=== PATIENT | male | born 1960 | race Caucasian/White ===

== ENCOUNTER 2016-11-29 09:01 | Outpatient (CLI) | payer OTHER ==
--- NOTE | 2016-11-29 15:17 | DIAGNOSTIC IMAGING REPORT ---
PROCEDURE: CT THORAX ABD PELVIS W/CONT INDICATION: METASTATIC PROSTATE CANCER, initial encounter TECHNIQUE: 150 ml of Isovue 300 injected intravenously and axial images were obtained of the entire thorax, abdomen, and pelvis with sagittal and coronal reformations. COMPARISON: Bone scan 11/29/2016 FINDINGS: THORAX: Normal lung parenchyma. No effusion. 5 mm right pericardial lymph node. Normal thoracic aorta. Coronary atherosclerosis. Normal heart size. Small hiatal hernia with thickening of the distal esophagus which may represent esophagitis. Extensive sclerotic metastases of the clavicles, humeral heads, bilateral ribs and spine. ABDOMEN: Small calcified gallstone. Liver, pancreas, spleen (splenule), adrenal glands and the kidneys are normal. Mild atherosclerosis of the aorta. No retroperitoneal adenopathy. Nonspecific bowel gas pattern. Extensive sclerotic metastases of the lumbar spine. PELVIS: Normal appendix. Occasional sigmoid diverticula. Nonenlarged prostate with central dystrophic calcification. Normal bladder. There is no adenopathy or free fluid. Extensive bone metastasis throughout the pelvic bones. IMPRESSION: 1. Extensive sclerotic osseous metastases throughout the axial and appendicular skeleton 2. Small hiatal hernia with thickening of the distal esophagus suggestive of reflux esophagitis 3. Cholelithiasis All CT scans at this facility use dose modulation, iterative reconstruction, and/or weight-based dosing when appropriate to reduce radiation dose to as low as reasonably achievable.
--- NOTE | 2016-11-29 15:29 | DIAGNOSTIC IMAGING REPORT ---
PROCEDURE: NM BONE/JOINT WHOLE BODY INDICATION: METASTATIC PROSTATE CANCER TECHNIQUE: 26 mCi of technetium-99m MDP. Blood flow, blood pool, and delayed static images. COMPARISON: CT abdomen/pelvis 11/29/2016 FINDINGS: Multiple areas of abnormally increased uptake in the skull, shoulders, bilateral humeri, bilateral femurs and bilateral tibias. Mild increased uptake of the mandible on the right may represent periodontal disease. Increased uptake of the right tarsal joints suggestive of degenerative changes. There is nonvisualization of the kidneys consistent with a super scan. IMPRESSION: 1. "Super scan "with multiple areas of abnormal uptake corresponding to the sclerotic lesions on today's CT scan, consistent with metastatic disease 2. Right mandibular uptake suggests periodontal disease 3. Right tarsal joints degenerative changes.
== END 2016-11-29 23:00 ==
LOC: NM SRH 09:01
DX: C61 Malignant neoplasm of prostate (principal); C79.51 Secondary malignant neoplasm of bone

== ENCOUNTER 2017-02-07 08:28 | Outpatient (CLI) | payer OTHER ==
--- NOTE | 2017-02-07 12:37 | DIAGNOSTIC IMAGING REPORT ---
PROCEDURE: MR THORACIC SPINE W/WO CONT INDICATION: CARCINOMATOSIS TECHNIQUE: Sagittal T1, T2, proton density; axial T2; and post 15 ml of ProHance sagittal and axial T1 fat sat sequences were obtained through the thoracic spine. COMPARISON: Bone scan 11/29/2016. FINDINGS: Abnormal T1 signal throughout the thoracic and partially visualized cervical spine with diffuse heterogeneous enhancement consistent with carcinomatosis. No evidence of pathological acute fracture. Mild degenerative changes. Mild central T4-5 and T8-9 central disc protrusions without spinal stenosis. Large T9-10 central disc herniation with mild spinal stenosis and flattening of the cord anteriorly. No foraminal stenosis. Paraspinal soft tissues are normal. Normal process or without evidence of an enhancing mass. IMPRESSION: 1. Diffuse carcinomatosis of the entire thoracic and partially visualized cervical spine 2. Mild T4-5 and T8-9 central disc protrusions 3. Large T9-10 central disc herniation with mild spinal stenosis and flattening of the cord anteriorly
--- NOTE | 2017-02-07 12:45 | DIAGNOSTIC IMAGING REPORT ---
PROCEDURE: MR LUMBAR SPINE W/WO CONTRAST INDICATION: CARCINOMATOSIS TECHNIQUE: Sagittal T1, STIR and T2; axial T2 sequences were obtained. Following 15 mL of intravenous gadolinium (ProHance), FAT-SAT T1 sagittal and axial images were obtained. COMPARISON: Bone scan 11/29/2016. FINDINGS: Abnormally decreased T1 signal of the entire lumbar spine and visualized site. with scattered areas of increased signal on the STIR sequence and heterogeneous enhancement consistent with carcinomatosis. L1-2: Mild facet arthropathy. L2-3: Mild facet arthropathy. L3-4: Mild broad-based disc bulge with moderate facet arthropathy. There is mild bilateral of foraminal stenosis. No spinal stenosis. L4-5: Moderate to large broad-based disc bulge with severe facet arthropathy and thickening of the ligament flava resulting in moderate bilateral foraminal and severe spinal stenosis. L5-S1: Normal appearance. IMPRESSION: 1. Markedly abnormal bone marrow of the lumbar spine visualize second consistent with carcinomatosis 2. Mild L3-4 disc bulge with mild bilateral foraminal stenosis 3. Moderate to large L4-5 disc bulge resulting in moderate bilateral foraminal and severe spinal stenosis
== END 2017-02-07 23:00 ==
LOC: MRI SRH 08:28
DX: C80.0 Disseminated malignant neoplasm, unspecified (principal); M51.24 Other intervertebral disc displacement, thoracic region

== ENCOUNTER 2017-02-10 14:03 | Outpatient (CLI) | payer OTHER ==
--- NOTE | 2017-02-10 16:55 | DIAGNOSTIC IMAGING REPORT ---
PROCEDURE: MR CERVICAL SPINE W/WO CONT INDICATION: CARCINOMATOSIS TECHNIQUE: Sagittal T1, STIR, T2; oblique T2; axial gradient echo and T2 sequences. Following 20 ml of ProHance IV, sagittal and axial T1 fat sat sequences were obtained. COMPARISON: Bone scan 11/29/2016. FINDINGS: Abnormal decreased T1 signal, patchy increased signal on the STIR sequence and inhomogeneous enhancement of the entire cervical spine consistent with carcinomatosis. Normal alignment without fracture. Mild to moderate degenerative changes. Craniocervical junction and cord are normal. No abnormal enhancement of the cord. C2-3: Moderate left posterior/foraminal disc protrusion/spur complex with facet arthropathy resulting in moderate left foraminal stenosis. No spinal stenosis. C3-4: Normal. C4-5: Normal. C5-6: Mild broad-based disc bulge/spur complex and facet arthropathy resulting in mild left foraminal stenosis. No spinal stenosis. C6-7: Mild disc bulge and facet arthropathy resulting in mild right foraminal stenosis. No spinal stenosis. C7-T1: Normal. IMPRESSION: 1. Normal bone marrow signal throughout the cervical spine consistent with carcinomatosis 2. Mild to moderate degenerative changes 3. Moderate left C2-3, mild left C5-6 and mild right C6-7 foraminal stenosis.
== END 2017-02-10 23:00 ==
LOC: MRI SRH 14:03
DX: C80.0 Disseminated malignant neoplasm, unspecified (principal); M50.31 Other cervical disc degeneration, high cervical region; M48.02 Spinal stenosis, cervical region